=== PATIENT | male | born 1980 | race Caucasian/White ===

== ENCOUNTER 2018-05-23 16:52 | Emergency (ER) | payer SELFPAY ==
[~2018-05-23] VITALS: Ht 165.1 cm; Wt 108.9 kg
[2018-05-23 17:00] VITALS: Ht 165.1 cm; Wt 108.9 kg
[2018-05-23 18:24] VITALS: BP 132/74
== END 2018-05-23 18:24 | disposition home or self-care (01) ==
LOC: ED 16:52
DX: S20.219A Contusion of unspecified front wall of thorax, initial encounter (principal); V49.49XA Driver injured in collision with other motor vehicles in traffic accident, initial encounter; Y93.I9 Activity, other involving external motion; Y92.413 State road as the place of occurrence of the external cause; Y99.8 Other external cause status
CPT/HCPCS: Q0092